=== PATIENT | female | born 1980 | race Caucasian/White ===

== ENCOUNTER 2019-09-03 06:24 | Day surgery (SDC) | payer OTHER, BC ==
[~2019-09-03 06:24] MED LIST: Dextrose 5%-0.45% NaCl 1,000 ML IV SCH; Midazolam 1 MG/ML 2 ML SDV ONE; Sodium Chloride 0.9% 10 ML Syringe FLUSH PRN; fentaNYL 100 MCG/2 ML SDV ONE
[2019-09-03] MEDS ORDERED: fentaNYL 100 MCG/2 ML SDV IV ONE ×5 (06:25→07:43)
[2019-09-03] MEDS ORDERED: Midazolam 1 MG/ML 2 ML SDV IV ONE ×7 (06:25→07:38)
--- NOTE | 2019-09-03 10:22 | OR ---
DATE: 09/03/2019 PROCEDURE: Total colonoscopy. INSTRUMENT USED: PCF-H190DL Olympus video colonoscope. PREMEDICATIONS: Fentanyl 150 mcg intravenous, Versed 4 mg intravenous, nasal O2 cannula. The procedure was done under pulse oximetry, BP recording, and pelt grader. INDICATION: The patient with progressive constipation and abdominal pain unexplained and not responsive to medical measures. Colonoscopic examination is done for detection of any polypoid lesions and removal, endoscopic hemostasis therapy if needed. DESCRIPTION OF PROCEDURE: Initial rectal exam was unremarkable. Rigid anoscopy was normal. The colonoscope was passed with ease. Scattered diverticula were noted in the distal left colon along with some deformities. The scope was passed with ease up to the ileocecal area. Photographs were taken of the normal- appearing cecum, identified by appendiceal orifice and double-bulged ileocecal folds. No bleeding was noted from any of the visualized areas. At the commencement of the examination, the bowel preparation was found to be adequate. [place] scale 2 in all the lesions, total score 6. No stricture. No vascular ectasia. No large isolated ulcerations seen. No evidence of diffuse inflammatory bowel disease in the form of friability, contact bleeding, or ulcerations. No polyp or tumor mass identified. Probing the proximal sides of folds and flexures using adequate distention and clearing up the stool material, withdrawal of the scope was made, cecum to rectum time over 6 minutes. No bleeding was noted from any of the visualized areas at the completion of examination. IMPRESSION: Diverticulosis. The patient tolerated the procedure well. [facility] /[id number]
--- NOTE | 2019-09-03 12:47 | LETTER ---
09/03/2019 Tracie Scott MD [address] [address] RE: KATHERINE PAULINOAN : [address] Scott: Ms. Katherine Paulino had colonoscopic examination done this morning and she tolerated the procedure well. I herewith send a copy of the endoscopy note and photographs for your review. Thank you. Sincerely, [facility] /[id number]
== END 2019-09-03 09:40 | disposition home or self-care (01) ==
LOC: DL.ENDO 06:24
PROVIDERS: ATTEND Internal Medicine Gastroenterology
DX: K57.30 Diverticulosis of large intestine without perforation or abscess without bleeding (principal); K59.00 Constipation, unspecified; E66.09 Other obesity due to excess calories; Z98.890 Other specified postprocedural states; Z88.7 Allergy status to serum and vaccine; Z87.19 Personal history of other diseases of the digestive system; Z68.30 Body mass index [BMI] 30.0-30.9, adult
CPT/HCPCS: J2250; J3010; J7042